=== PATIENT | male | born 1985 | race African-American/Black ===

== ENCOUNTER 2019-08-03 10:01 | Inpatient (IN) ==
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
[2019-08-03 10:28] LABS: iSTAT Hemoglobin 15.6 g/dl (14.0-18.0); iSTAT Ionized Calcium 1.19 mmol/l (1.12-1.32); iSTAT Potassium 4.3 mmol/L (3.3-5.0)
[2019-08-03] MEDS ORDERED: SODIUM CHLORIDE 0.9% 1000ML 1,000 ML IV SCH (10:30)
--- NOTE | 2019-08-03 10:31 | XRay Report ---
XR chest 1V portable HISTORY: 33 years-old Male suiicide attempted having COMPARISON: None TECHNIQUE: Portable supine AP view of the chest FINDINGS: Cardiomediastinal and hilar silhouettes are within normal limits. No pneumothorax, pleural effusion, airspace consolidation or overt pulmonary edema. Bones of the chest appear grossly intact. IMPRESSION: No acute process. ACT 112: Negative or not required by law. The above report was generated using voice recognition software. It may contain grammatical, syntax o r spelling errors. Electronically signed by: Eleazar Cedeño M.D. 08/03/2019 10:30 AM
[2019-08-03] MEDS ORDERED: OPTIRAY 320 125ml IV PRN (10:37)
[2019-08-03 10:52] LABS: Basophils # (auto) 0.02 K/uL (0-0.2); Basophils % (auto) 0.5 %; Eosinophils # (auto) 0.02 K/uL (0-0.5); Eosinophils % (auto) 0.5 %; Hematocrit (blood only) 44.4 % (42-52); Hemoglobin 15.6 g/dL (14.0-18.0); Immature Granulocytes # (auto) 0.01 K/uL (0.00-0.02); Immature Granulocytes % (auto) 0.3 %; Lymphocytes # (auto) 0.74 K/uL (1.2-3.4); Mean Corpuscular Hemoglobin 31.2 pg (25-34); Mean Corpuscular Hgb Conc 35.1 g/dL (32-36); Mean Corpuscular Volume 88.8 fL (80-100); Mean Platelet Volume 11.4 fL (7.4-10.4); Monocytes # (auto) 0.19 K/uL (0.11-0.59); Monocytes % (auto) 4.9 %; Neutrophils # (auto) 2.91 K/uL (1.4-6.5); Neutrophils % (auto) 74.8 %; Platelet Count 324 K/uL (130-400); RDW Coefficient of Variation 12.6 % (11.5-14.5); RDW Standard Deviation 40.2 fL (36.4-46.3); White Blood Count 3.89 K/uL (4.8-10.8)
--- NOTE | 2019-08-03 10:57 | CT Scan Report ---
CT head/brain wo con CLINICAL HISTORY: 33 years-old Male with attempted siudcie. Attempted suicide. TECHNIQUE: Multiple axial CT images of the head were obtained without contrast. A dose lowering tech nique was utilized adhering to the principles of ALARA. CT DOSE: 1734.13 mGy.cm COMPARISON: CTA head neck of same day. FINDINGS: No acute intracranial hemorrhage, midline shift, intracranial mass, hydrocephalus, territorial ischem ia or abnormal extra-axial collection. The calvarium is intact. The paranasal sinuses, mastoid air cells, and middle ear cavities are clear . IMPRESSION: No acute intracranial abnormality or calvarial fracture. ACT 112: Negative or not required by law. The above report was generated using voice recognition software. It may contain grammatical, syntax o r spelling errors. Electronically signed by: Eleazar Cedeño M.D. 08/03/2019 10:56 AM
--- NOTE | 2019-08-03 11:01 | CT Scan Report ---
CT angio neck with con CLINICAL HISTORY: 33 years-old Male with attempted hanging. Attempted suicide COMPARISON STUDY: CT head and CTA head of same day TECHNIQUE: Following the IV administration of 120 of Optiray 320, CT angiogram of the neck was perfor med from the aortic arch to the skull base. Images are reviewed in the axial, sagittal, and coronal p lanes. 3-D MIPS images are created and assessed. IV contrast was administered without complication. A ll measurements were calculated based on NASCET criteria. A dose lowering technique was utilized adh ering to the principles of ALARA. FINDINGS: Three-vessel morphology of the aortic arch. Patency of the imaged proximal bilateral subclavian arter ies. Patent innominate and common carotid arteries. Internal carotid arteries are also widely patent and unremarkable. The vertebral arteries are codominant and widely patent. No aneurysm, dissection, h igh-grade stenosis or proximal branch occlusion identified. Imaged basilar artery also appears patent . No significant atherosclerotic vascular disease. Residual thymic tissue of the anterior mediastinum . Unremarkable thyroid. Patent airway. Lung apices appear clear. The cervical spine and hyoid bone ap pear intact. IMPRESSION:Unremarkable CTA of the neck. ACT 112: Negative or not required by law. The above report was generated using voice recognition software. It may contain grammatical, syntax o r spelling errors. Electronically signed by: Eleazar Cedeño M.D. 08/03/2019 11:00 AM
--- NOTE | 2019-08-03 11:04 | CT Scan Report ---
CT lumbar spine wo con CT DOSE: CLINICAL HISTORY: Lumbar spine pain status post trauma TECHNIQUE: Helical images were acquired in transverse plane. Reformatted sagittal and coronal images were reviewed. A dose lowering technique was utilized adhering to the principles of ALARA. CONTRAST: No contrast was administered COMPARISON STUDY: None. FINDINGS: L1-2 level: There is a minimal circumferential disc bulge with minimal spinal canal narrowing. L2-3 level: There is a minimal circumferential disc bulge with minimal spinal canal narrowing. L3-4 level: There is a mild circumferential disc bulge with minor spinal canal narrowing L4-5 level: There is a mild circumferential disc bulge with mild to moderate spinal canal narrowing L5-S1 level: There is no evidence of significant disc bulge or focal herniation. There is no evidence of spinal or foraminal stenosis. No acute fractures or traumatic subluxations are visualized. IMPRESSION: No fractures or subluxations are visualized. ACT 112: Negative or not required by law. Electronically signed by: Jeremy Kam M.D. 08/03/2019 11:03 AM
[2019-08-03 11:09] LABS: Albumin Level 4.1 gm/dl (3.4-5.0); BUN Creatinine Ratio 12.7 (10-20); Calcium 8.7 mg/dl (8.5-10.1); Creatinine Clr Calc Pharmacy 94.9 ml/min; Est GFR (African American) 102.5; Est GFR (Non-African American) 88.5; Potassium 4.1 mmol/L (3.5-5.1)
[2019-08-03 11:26] LABS: Acetaminophen < 2 ug/ml (10-30); Albumin Globulin Ratio 1.1 (0.9-2); Bilirubin,Total 0.6 mg/dl (0.2-1); Globulin 3.7 gm/dl (2.5-4.0); Salicylate < 1.7 mg/dl (2.8-20); Total Protein 7.8 gm/dl (6.4-8.2); Troponin I 0.99 ng/ml (0-0.045)
[2019-08-03 11:51] LABS: Appearance Urine Clear (Clear); Bilirubin Urine Negative (Negative); Blood Urine Negative (Negative); Color Urine Yellow; Glucose Urine UA Negative (Negative); Ketones Urine Negative (Negative); Leukocyte Esterase Urine Negative (Negative); Nitrite Urine Negative (Negative); Protein Urine Negative (Negative); Specific Gravity Urine 1.036 (1.000-1.030); Urobilinogen Urine Negative (Negative)
[2019-08-03 12:09] LABS: Amphetamines+Metham, Urine Neg (Neg); Barbiturates, Urine Neg (Neg); Benzodiazepine, Urine Neg (Neg); Cocaine, Urine Neg (Neg); MDMA (Ecstacy), Urine Neg (Neg); Methadone, Urine Neg (Neg); Opiate, Urine Neg (Neg); Phencyclidine, Urine Neg (Neg)
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
--- NOTE | 2019-08-03 14:45 | Electrocardiogram Report ---
Test Reason : Blood Pressure : / mmHG Vent. Rate : 066 BPM Atrial Rate : 066 BPM P-R Int : 170 ms QRS Dur : 078 ms QT Int : 390 ms P-R-T Axes : 066 028 043 degrees QTc Int : 408 ms Poor data quality, interpretation may be adversely affected Normal sinus rhythm Normal ECG No previous ECGs available Confirmed by Hemant Dela Cruz ([id number]) on 08/03/2019 2:45:13 PM Referred By: REFERRED SELF Confirmed By:Hemant Dela Cruz
[2019-08-03] MEDS ORDERED: LEVALBUTEROL TARTRATE 15 GM HFA.AER.AD INH PRN (15:46)
[2019-08-03] MEDS: ACETAMINOPHEN 325 MG TAB PO PRN (17:42)
[2019-08-04] MEDS: SERTRALINE HCL 50 MG TABLET PO SCH (09:10)
[2019-08-04] MEDS: MIRTAZAPINE TAB 15 MG TAB PO SCH (09:10)
[2019-08-04] MEDS: ACETAMINOPHEN 325 MG TAB PO PRN ×2 (09:15→20:12)
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
[2019-08-04] MEDS ORDERED: SODIUM CHLORIDE 0.9% 1000ML 1,000 ML IV SCH (10:15)
--- NOTE | 2019-08-04 13:35 | Electrocardiogram Report ---
Test Reason : Blood Pressure : / mmHG Vent. Rate : 064 BPM Atrial Rate : 064 BPM P-R Int : 176 ms QRS Dur : 088 ms QT Int : 408 ms P-R-T Axes : 061 057 060 degrees QTc Int : 420 ms Normal sinus rhythm Early repolarization Otherwise Normal ECG When compared with ECG of 03-AUG-2019 10:06, No significant change was found Confirmed by Hemant Dela Cruz ([id number]) on 08/04/2019 1:34:50 PM Referred By: REFERRED SELF Confirmed By:Hemant Dela Cruz
--- NOTE | 2019-08-04 14:37 | Hospitalist Progress Note ---
Date of Service August 04, 2019 Assessment & Plan (1) Suicide attempt by hanging: (2) Anxiety: (3) Depression: Presented to ER from [facility] after attempting hanging himself CTA neck unremarkable CTA of the neck. CT lumbar showed no fractures or subluxations are visualized. Continue 1 to 1 observation Psych on board Continue Sertraline and Mirtazapine Continue monitor closely (4) Elevated troponin I level: Mostly related to muscle breakdown/stress in the heart from hanging on the ceiling Troponin: 0.99-> 0.965-> 0.947 on admission EKG showed no ischemic changes ECHO showed no wall motion abnormality with EF 60-65% Stable (5) Asthma: No signs of exacerbation Continue Xopenex prn Elevated CPK Mostly due to being hanging on the ceiling Received IVF in the ER Will give an additional 1L IVF Check CPK level in am DVT Prophylaxis Low risk, ambulate Disposition Follows with at [facility] for routine care Discharge home tomorrow Admission and Anticipated Discharge Date Admission Date: August 03, 2019 Subjective Pt was seen and examined Lying in bed with no distress with 1 to 1 observation Pt said that he feels fine He said that he is having pain in his neck Pt said that his on life sentence and solitary confinement indefinitely He said that he has been on solitary since November Currently denies any suicidal thought, any thought to harm himself or other, any hallucination Physical Exam Physical Exam: General- No acute distress Head- atraumatic Eyes- PERRL, EOMI, ENT- oropharynx clear Neck- supple, no JVD, bruises around his neck, +tenderness with palpation Lungs- clear to auscultation Heart- regular rhythm; no murmur Abdomen- normal bowel sounds, soft, nontender Extremities- no calf tenderness Neuro- alert, oriented x 3; PERRL, EOMI; no facial palsy; no dysarthria Skin- warm & dry Results & Data Results & Data ([facility]) Vital Signs (Past 12 Hours) Vital Signs Temp Pulse Pulse Resp BP Pulse Ox 08/04/19 11:27 36.6 C 73 18 130/79 97 08/04/19 07:27 75 08/04/19 07:14 36.8 C 59 L 16 124/78 98 (1) Suicide attempt by hanging Encounter type: initial encounter Qualified Code(s): T71.162A - Asphyxiation due to hanging, intentional self-harm, initial encounter
[2019-08-05] MEDS: MIRTAZAPINE TAB 15 MG TAB PO SCH (08:25)
[2019-08-05] MEDS: SERTRALINE HCL 50 MG TABLET PO SCH (08:25)
--- NOTE | 2019-08-05 09:49 | Hospitalist Progress Note ---
Date of Service August 05, 2019 Assessment & Plan (1) Suicide attempt by hanging: (2) Anxiety: (3) Depression: -Presented to ER from [facility] after attempting hanging himself -CTA neck unremarkable CTA of the neck. -CT lumbar showed no fractures or subluxations are visualized. -Patient was monitored in the hospital [place] on 1 to 1 observation of nursing care partner. Patient has also been accompanied by correctional officers in the hospital -Psychiatry assessed the patient on 08/04/2019 and agreed with continuing Sertraline 50 mg daily and Mirtazapine 30 mg daily ("Sertraline 50mg and mirtazapine 30mg were resumed upon admission - agree with this. Pt states he had not taken the medications in several days. Ongoing adjustments as necessary/indicated deferred to correction facility. It does seem appropriate to consider further titration of sertraline as tolerated to target low mood related to his incarceration and other situational events. Pt admits to intermittent SI with plans to hang himself or overdose. While it does seem that his behavior may have been related to desire to be transferred out of solitary confinement, he remains at increased risk of ongoing self-harm/suicide attempts - recommend suicide precautions and ongoing mental health treatment [facility]) -08/05/2019: Communicated with [facility] [phone] and discussed with their medical department about hospital discharge of the patient (4) Elevated troponin I level: secondary to demand ischemia from transient asphyxiation during suicide attempt -Troponin: 0.99-> 0.965-> 0.947 on admission -EKG showed no ischemic changes, Echocardiogram showed no wall motion abnormality with EF 60-65% Elevated creatinine kinase level, secondary to muscle breakdown from suicide attempt -admission creatinine kinase 466, was given IV fluids -creatinine normalized on lab check on 08/05/2019 (5) Asthma: -No signs of exacerbation DVT Prophylaxis: ambulation Disposition: Patient to return to [facility] Admission and Anticipated Discharge Date Admission Date: August 03, 2019 Subjective Patient seen and examined at bedside. He is resting on the bed. No acute distress. breathing on room air. no breathing difficulties. No problems with speech. Denies chest pain. Denies shortness of breath. No areas of discomfort of the body except some neck discomfort of front and posterior neck. He is able to do range of motion with neck. There is no swelling or erythema around the neck area. Review of Systems Review of Systems: All systems reviewed & are unremarkable except as noted in Subjective Physical Exam Constitutional: WD/WN, vitals as above Eyes: PERRL, conjunctivae normal, anicteric sclerae ENMT: external ear and nose normal, oropharynx normal Neck: trachea midline, no thyromegaly normal visual inspection Respiratory: normal respiratory effort, lungs clear to auscultation Cardiovascular: Rate/Rhythm: regular rate and regular rhythm Gastrointestinal (Abdomen): normal bowel sounds, soft, nontender, no hepatosplenomegaly Musculoskeletal: Head/Neck/Chest: normocephalic and head atraumatic Skin: no rashes, warm and dry Neurologic: PERRL, EOMI, accommodation nl, no face palsy, no dysarthria CN's II-XI intact bilaterally Psychiatric: A+Ox3, euthymic affect Results & Data Results & Data ([facility]) Vital Signs (Past 12 Hours) Vital Signs Temp Pulse Pulse Pulse Resp BP Pulse Ox 08/05/19 06:00 36.7 C 58 L 18 132/80 96 08/05/19 04:00 36.8 C 47 L 18 122/75 97 08/05/19 03:56 58 L 08/04/19 22:56 36.8 C 56 L 18 124/77 97 (1) Suicide attempt by hanging Encounter type: initial encounter Qualified Code(s): T71.162A - Asphyxiation due to hanging, intentional self-harm, initial encounter
--- NOTE | 2019-08-05 10:10 | Discharge Summary ---
Date of Service August 05, 2019 Admission HPI Per Admitting Provider Pt is 33 y/o M with PMH anxiety, depression, PTSD, asthma presented to ER from [facility] for attempted hanging. Patient reports history of depression and reports has been having difficulties in intermediate with bullying. Patient states this morning he attempted to hang himself using a sheet around his neck and tying it to the ceiling vent. Patient reports attempted this at 8:00 in the morning. Patient was found by guards during morning rounds and was cut down. Medical staff from sn[facility] report do not think pt was hanging for very long. They report got the call and pt was "semi-unconscious" when found and once cut down he was then awake and alert and able to stand. It is reported pt was placed in c-collar and on long board. Pt resides in cell alone. Patient states remembers waking up on floor. Patient complains pain to anterior neck and lower back. Also complaining of posterior headache. Pt states his vision is blurry because he doesn't have his glasses on. Denies shortness of breath, chest pain, palpit ations, paresthesias. Patient on sertraline and mirtazapine reports has been on this for less than 1 year. Patient stopped taking his medications 3 days ago as he "felt he did not need them anymore" and he was fasting for Ramadan. Patient reports history of suicidal ideations in the past with history of cutting abdomen during his childhood. Patient reports history of drug abuse including marijuana, xanax, embalming fluid, PCP, cocaine, heroin and drug abuse during childhood and as a teenager. Patient states has not used since age 13 as he has been incarcerated. Denies fever/chills, diaphoresis, N/V/D, dizziness, syncope, loss of vision, diplopia, CP, SOB, palpitations, cough, sore throat, choking, otalgia, rhinorrhea, abdominal pain, paresthesias, extremity weakness, extremity edema, rashes, urinary symptoms. Principal Diagnosis Suicide attempt by hanging Anxiety Depression Elevated troponin I level secondary to demand ischemia from transient asphyxiation during suicide attempt Elevated creatinine kinase level, secondary to muscle breakdown from suicide attempt Discharge Exam Constitutional WD/WN, vitals as above Eyes PERRL, conjunctivae normal, anicteric sclerae ENMT external ear and nose normal, oropharynx normal Neck trachea midline, no thyromegaly normal visual inspection Respiratory normal respiratory effort, lungs clear to auscultation Cardiovascular Rate/Rhythm: regular rate and regular rhythm Gastrointestinal (Abdomen) normal bowel sounds, soft, nontender, no hepatosplenomegaly Musculoskeletal Head/Neck/Chest: normocephalic and head atraumatic Skin no rashes, warm and dry Neurologic PERRL, EOMI, accommodation nl, no face palsy, no dysarthria CN's II-XI intact bilaterally Psychiatric A+Ox3, euthymic affect Discharge Data Allergies Allergy/AdvReac Type Severity Reaction Status Date / Time No Known Allergies Allergy Unverified 08/03/19 10:36 Consultations 08/03/19 12:25 ED Decision to Admit Stat 08/03/19 15:46 Consult Psychiatry Routine Ordered Studies 08/03/19 10:16 CT angio neck with con Stat CT head/brain wo con Stat CT lumbar spine wo con Stat Hospital Course (1) Suicide attempt by hanging: (2) Anxiety: (3) Depression: -Presented to ER from [facility] after attempting hanging himself -CTA neck unremarkable CTA of the neck. -CT lumbar showed no fractures or subluxations are visualized. -Patient was monitored in the hospital [place] on 1 to 1 observation of nursing associate. Patient has also been accompanied by correctional officers in the hospital -Psychiatry assessed the patient on 08/04/2019 and agreed with continuing Sertraline 50 mg daily and Mirtazapine 30 mg daily ("Sertraline 50mg and mirtazapine 30mg were resumed upon admission - agree with this. Pt states he had not taken the medications in several days. Ongoing adjustments as necessary/indicated deferred to correction facility. It does seem appropriate to consider further titration of sertraline as tolerated to target low mood related to his incarceration and other situational events. Pt admits to intermittent SI with plans to hang himself or overdose. While it does seem that his behavior may have been related to desire to be transferred out of solitary confinement, he remains at increased risk of ongoing self-harm/suicide attempts - recommend suicide precautions and ongoing mental health treatment per correctional facility protocol) -08/05/2019: Communicated with [facility] [phone] and discussed with their medical department about hospital discharge of the patient (4) Elevated troponin I level: secondary to demand ischemia from transient asphyxiation during suicide attempt -Troponin: 0.99-> 0.965-> 0.947 on admission -EKG showed no ischemic changes, Echocardiogram showed no wall motion abnormality with EF 60-65% Elevated creatinine kinase level, secondary to muscle breakdown from suicide attempt -admission creatinine kinase 466, was given IV fluids -creatinine normalized on lab check on 08/05/2019 (5) Asthma: -No signs of exacerbation DVT Prophylaxis: ambulation Disposition: Patient to return to [facility] Total Time Total Time Spent Total Time Spent (In Minutes): 40 minutes Discharge Plan Discharge Items Patient Disposition: Correctional Facility Reason For Visit: SUICIDE ATTEMPT,ELEVATED TROPONIN Discharge Diagnosis: Suicide attempt by hanging Anxiety Depression Elevated troponin I level secondary to demand ischemia from transient asphyxiation during suicide attempt Elevated creatinine kinase level, secondary to muscle breakdown from suicide attempt Condition on Discharge: Good Activity: Per Instructions section Non-emergency contact: Primary Care Provider and Psychiatrist Call non-emergency contact if: you have any medication questions Follow-up/Referrals: [facility] [Primary Care Provider] - Diet: Regular Addtl Attending Provider Instructions: -Presented to ER from [facility] after attempting hanging himself -CTA neck unremarkable CTA of the neck. -CT lumbar showed no fractures or subluxations are visualized. Elevated troponins secondary to demand ischemia from transient asphyxiation during suicide attempt -Troponin: 0.99-> 0.965-> 0.947 on admission -EKG showed no ischemic changes, Echocardiogram showed no wall motion abnormality with EF 60-65% Elevated creatinine kinase level, secondary to muscle breakdown from suicide attempt -admission creatinine kinase 466, was given IV fluids -creatinine normalized on lab check on 08/05/2019 -Patient was monitored in the hospital [place] on 1 to 1 observation of nursing associate. Patient has also been accompanied by correctional officers in the hospital -Psychiatry assessed the patient on 08/04/2019 and agreed with continuing Sertraline 50 mg daily and Mirtazapine 30 mg daily ("Sertraline 50mg and mirtazapine 30mg were resumed upon admission - agree with this. Pt states he had not taken the medications in several days. Ongoing adjustments as necessar y/indicated deferred to correction facility. It does seem appropriate to consider further titration of sertraline as tolerated to target low mood related to his incarceration and other situational events. Pt admits to intermittent SI with plans to hang himself or overdose. While it does seem that his behavior may have been related to desire to be transferred out of solitary confinement, he remains at increased risk of ongoing self-harm/suicide attempts - recommend suicide precautions and ongoing mental health treatment per correctional facility protocol) -08/05/2019: Communicated with [facility] [phone] and discussed with their medical department about hospital discharge of the patient Pending Studies at Discharge: No Stand-Alone Forms: My [facility] Skilled Items Patient informed of condition?: Yes Discharge Level of Care: Other Communicable Disease: No Discharge Prognosis: Stable Lines: None Urinary Catheter: No Medications and DC Order Prescriptions: New mirtazapine 15 mg Tablet 30 mg PO DAILY 30 Days Qty: 60 RF: 0 sertraline 50 mg Tablet 50 mg PO DAILY 30 Days Qty: 30 RF: 0 Continued levalbuterol tartrate [Xopenex HFA] 45 mcg/actuation Hfa Aerosol Inhaler 2 inh INHALATION Q6H PRN (Reason: Shortness Of Breath Or Wheezing) RF: 0 Discontinued mirtazapine 30 mg Tablet 30 mg PO DAILY RF: 0 sertraline 50 mg Tablet 50 mg PO DAILY RF: 0 Discharge Orders: Discharge Order (Routine); Ordered 08/05/19 Ordered By: Mor Wright Admission Data Admit Date/Time: 08/03/19 12:43 Attending Provider: Mor Wright Admit Provider: Evelin Landaverde Primary Care Provider: Sylvester CORRAL Other Providers: Evelin Landaverde ; Flores Salinas
== END 2019-08-05 15:18 | DRG 923 ==
LOC: ED 10:01 → SUATTDRO 12:43 → 2N 12:43